=== PATIENT | male | born 1975 | race Caucasian/White ===

== ENCOUNTER 2017-02-28 10:00 | Inpatient (IN) | payer OTHER ==
--- NOTE | ~2017-02-28 | PN ---
Unit #: [id number] #: [id number] Patient: SHASTA TEE [id number] [facility] [address] [place] [address] [id number] I MR#: [id number] NAME: SHASTA TEE. ROOM: P210 Age: 41 Sex: M Admission Date: 02/28/2017 : 1975 Attending Physician: Josh Torres M.D. Admitting Physician: Josh Torres M.D. Primary Care Physician: Aby Doctor Not In System [facility] PROGRESS NOTES DATE 03/06/2017 DISCUSSION The patient is a 41-year-old white male, who was seen today, chart was reviewed, and case was discussed with the staff. He has been anxious, withdrawn, though has not shown any agitation, irritability, or behavioral problem and has been cooperative with treatment recommendations and has been taking the medications and tolerating them fairly well. MENTAL STATUS EXAMINATION Middle-aged male, who is casually dressed with fair personal hygiene, appears to be in no acute distress or discomfort. He is awake and alert attention and concentration. His mood is anxious and depressed with a congruent affect with some suicidal ideation, but denies any homicidal ideation. His insight and judgment remain significantly impaired. TREATMENT PLAN 1. We will continue on his current treatment protocol. We will monitor his response to the medications and make further adjustments as needed. 2. We will continue to follow up. Dictated by... Joseph Bryant/phyllis TD: 03/06/2017 18:45 JOB #: [id number] [facility] PROGRESS NOTES Page 1 of 1 X Josh Torres MD PROGRESS NOTE
--- NOTE | ~2017-02-28 | PN ---
Unit #: [id number] #: [id number] Patient: SHASTA POLANCO [id number] [facility] [address] [place] [address] [id number] I MR#: [id number] NAME: SHASTA POLANCO ROOM: P210 Age: 41 Sex: M Admission Date: 02/28/2017 : 1975 Attending Physician: Josh Torres M.D. Admitting Physician: Josh Torres M.D. Primary Care Physician: Aby Doctor Not In System [facility] PROGRESS NOTES DATE OF SERVICE: 03/05/2017 SUBJECTIVE Mr. Polanco is a 41-year-old white male who was seen today and chart was reviewed and case was discussed with the staff. He has been doing fairly well and has been showing improvement in his mood and anxiety as he has been cooperative with treatment recommendations and has been taking the medications and tolerating them fairly well. MENTAL STATUS EXAMINATION Middle-aged white male who was casually dressed with fair personal hygiene, appears to be in no acute distress or discomfort. He was awake and alert on interaction with intact orientation. His mood was anxious with a congruent affect. He denies any suicidal or homicidal ideations. His insight and judgment remain slightly impaired. TREATMENT PLAN We will continue him on his current treatment protocol. We will monitor his response to the medications and make further adjustments as needed. Dictated by... Joseph Bryant/phyllis TD: 03/06/2017 08:05 JOB #: [id number] [facility] PROGRESS NOTES Page 1 of 1 X Josh Torres MD PROGRESS NOTE
--- NOTE | ~2017-02-28 | PN ---
Unit #: [id number] #: [id number] Patient: SHASTA POLANCO [id number] [facility] [address] [place] [address] [id number] I MR#: [id number] NAME: SHASTA POLANCO ROOM: P210 Age: 41 Sex: M Admission Date: 02/28/2017 : 1975 Attending Physician: Josh Torres M.D. Admitting Physician: Josh Torres M.D. Primary Care Physician: Aby Doctor Not In System [facility] PROGRESS NOTES DATE OF SERVICE: 03/03/2017 SUBJECTIVE Mr. oPlanco is a 41-year-old white male, who was seen today and chart was reviewed and case was discussed with the staff. He has been anxious, withdrawn, and rather seclusive to himself. Meanwhile, he has been cooperative with his treatment recommendations and has been taking the medications and tolerating them fairly well. MENTAL STATUS EXAMINATION Middle-aged white male who was casually dressed with fair personal hygiene, appears to be in no acute distress or discomfort. He was awake and alert on interaction with intact orientation. His mood was anxious with a congruent affect. He denies any suicidal or homicidal ideations. His insight and judgment remain slightly impaired. TREATMENT PLAN 1. We will continue on his current medications and treatment protocol. We will monitor his response to the medications and make further adjustments as needed. 2. We will continue to follow up. Dictated by... Joseph Bryant/phyllis TD: 03/04/2017 02:01 JOB #: [id number] [facility] PROGRESS NOTES Page 1 of 1 X Josh Torres MD PROGRESS NOTE
--- NOTE | ~2017-02-28 | PA ---
Unit #: [id number] #: [id number] Patient: SHASTA POLANCO [id number] [facility] [address] [place] [address] [id number] I MR#: [id number] NAME: SHASTA POLANCO ROOM: P210 Age: 41 Sex: M Admission Date: 02/28/2017 : 1975 Date of Assessment: 03/01/2017 Attending Physician: Josh Torres M.D. Admitting Physician: Josh Torres M.D. Primary Care Physician: Generic Doctor Not In System PSYCHIATRIC ASSESSMENT DATE OF SERVICE 02/28/2017. IDENTIFYING DATA Mr. Polanco is a 41-year-old single male, who is a resident of [place], [place], and is known to us from previous encounter and was self-referred to the hospital on a voluntary basis. CHIEF COMPLAINT "I've been attempting to take my life over a course of several days." HISTORY OF PRESENT ILLNESS Mr. Polanco is a 41-year-old male with history of mood disorder and substance abuse, who was self-referred to the hospital reporting that he has been trying to kill himself for the last few days and that he has a plan and that he tried to overdose on heroin a few days ago and he went to an abandoned building where he felt no one would find him and reports that he uses large amounts of heroin with hopes of overdosing and dying and the patient has been unsuccessful and reports that he frequently tried to slit his wrists using a razor blade and reports that he is originally from [place] and has lost several friends and family members due to suicide, terminal illnesses, or being killed and reports that he has been going through some increasing depression and does report feelings of hopelessness and helplessness and suicidal ideation with intent and plan and as such, a recommendation for inpatient level of care was made and the patient was transferred to us. SUBSTANCE ABUSE HISTORY The patient reports history of cocaine and opioids and methamphetamine abuse and last use of cocaine and opioids within the last 3 days. PAST PSYCHIATRIC HISTORY The patient reports history of psychiatric treatment and being diagnosed with mood disorder and currently going through some increasing depression, but he is noncompliant with the medication and as such has been decompensating. PAST MEDICAL HISTORY Crohn disease, asthma, and hepatitis C. ALLERGIES No known medication allergies. Unit #: [id number] #: [id number] Patient: SHASTA POLANCO PERSONAL AND SOCIAL HISTORY A 41-year-old male, who reports that he is single, unemployed, and lives with a friend and has poor social support system. MENTAL STATUS EXAMINATION Middle-aged male, who was casually dressed with a fair personal hygiene, appears to be in no acute distress or discomfort. He was awake and alert on interaction with intact orientation to time, place, and person. His mood was anxious with a congruent affect. His speech was slow and restricted in content. His thought processes were disorganized with some looseness of associations and suicidal ideations. His insight and judgment remain significantly impaired. DIAGNOSTIC IMPRESSION Psychiatric: Major depressive disorder, recurrent, moderate, without psychotic features; opioid dependence, moderate; cocaine dependence, moderate; and methamphetamine dependence, moderate. Medical: Hepatitis C, asthma, and Crohn disease. Stressors: Moderate psychosocial stressors. TREATMENT PLAN 1. The patient has presented with a history of substance abuse and mood disorder and has been decompensating and will need inpatient hospitalization for safety and stabilization. We will start him back on his home medications and we will adjust the medications and monitor response and make further adjustments as needed. 2. Supportive therapy was provided to the patient. 3. Safe, structured, and nourishing environment will be provided. ESTIMATED LENGTH OF STAY 5 to 7 days. ABILITY TO HELP SELF Limited. WILLINGNESS TO HELP SELF The patient appears to be willing to help self. STRENGTHS 1. Communicative. 2. Cooperative. PROBLEMS 1. Chronic dysphoric symptoms. 2. Poor social support system. DISCHARGE CRITERIA This will be contingent upon the patient's ability to show resolution of his depression and anxiety and his ability to stay safe to himself, particularly after discharge from the hospital. Dictated by... Josh Torres M.D. DEB/phyllis TD: 03/01/2017 12:50 Unit #: [id number] #: [id number] Patient: SHASTA POLANCO JOB #: [id number] PSYCHIATRIC ASSESSMENT Page 1 of 1 X Josh Torres MD PSYCHIATRIC ASSESSMENT
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
--- NOTE | ~2017-02-28 | PN ---
Unit #: [id number] #: [id number] Patient: SHASTA POLANCO [id number] [facility] [address] [place] [address] [id number] I MR#: [id number] NAME: SHASTA POLANCO ROOM: P210 Age: 41 Sex: M Admission Date: 02/28/2017 : 1975 Attending Physician: Josh Torres M.D. Admitting Physician: Josh Torres M.D. Primary Care Physician: Aby Doctor Not In System [facility] PROGRESS NOTES DATE OF SERVICE: 03/04/2017 IDENTIFICATION DATA Mr. Polanco is a 41-year-old male, who was seen today and chart was reviewed, and case was discussed with the staff. He has been anxious, withdrawn, depressed, asthma, complaining of decreased sleep at night. Meanwhile, he has been taking the medications and tolerating them fairly well. MENTAL STATUS EXAMINATION Middle-aged white male, who was casually dressed with fair personal hygiene, appears to be in no acute distress or discomfort. He was awake and alert on intact orientation. His mood was anxious with a congruent affect. He denies any suicidal or homicidal ideations. His insight and judgment remain slightly impaired. TREATMENT PLAN 1. We will continue on his current treatment protocol and we will monitor his response and make further adjustments as needed. 2. We will continue on followup. Dictated by... Joseph Bryant/phyllis TD: 03/05/2017 17:06 JOB #: [id number] [facility] PROGRESS NOTES Page 1 of 1 X Josh Torres MD PROGRESS NOTE
--- NOTE | ~2017-02-28 | DS ---
Unit #: [id number] #: [id number] [facility] [id number] [facility] [address] [place] [address] [id number] MR#: [id number] NAME: SHASTA POLANCO. ROOM: [facility] Age: 41 Sex: M Admission Date: 02/28/2017 : 1975 Discharge Date: 03/07/2017 Attending Physician: Josh Torres M.D. Primary Care Physician: Generic Doctor Not In System DISCHARGE SUMMARY IDENTIFYING DATA Mr. Polanco is a 41-year-old white male with history of substance abuse and mood disorder, who was self-referred to the hospital. DISCHARGE DIAGNOSES Psychiatric: Opioid dependence, moderate, in acute withdrawals and opioid-induced mood disorder. Medical: Hepatitis C, Crohn disease, history of deep venous thrombosis, and asthma. Stressors: Moderate psychosocial stressors. HISTORY OF PRESENT ILLNESS Please see initial psychiatric evaluation for details. PAST PSYCHIATRIC HISTORY Please see initial psychiatric evaluation for details. PAST MEDICAL HISTORY Please see initial psychiatric evaluation for details. HOSPITAL COURSE The patient was admitted to the adult chemical dependency unit at [facility] t[facility] and was oriented to the hospital environment. Routine p.r.n. medications were initiated, and he was started on the detox protocol and was closely monitored. He was taking the medications regularly and was tolerating them fairly well and was able to show a decent and therapeutic response and was able to come out of the detox without any complications and was willing to continue treatment on an outpatient basis and as such, it was decided that he will be kept on his current medications and will be discharged home and will continue treatment on an outpatient basis. DISCHARGE CONDITION Stable. PROGNOSIS Guarded. Dictated by... Joseph Bryant/vishall Unit #: [id number] #: [id number] Patient: SHASTA POLANCO TD: 04/08/2017 19:23 JOB #: [id number] DISCHARGE SUMMARY Page 1 of 1 X Josh Torres MD X DISCHARGE SUMMARY
--- NOTE | ~2017-02-28 | PN ---
Unit #: [id number] #: [id number] Patient: SHASTA POLANCO [id number] [facility] [address] [place] [address] [id number] I MR#: [id number] NAME: SHASTA POLANCO. ROOM: P210 Age: 41 Sex: M Admission Date: 02/28/2017 : 1975 Attending Physician: Josh Torres M.D. Admitting Physician: Josh Torres M.D. Primary Care Physician: Generic Doctor Not In System [facility] PROGRESS NOTES DATE 03/02/2017 DISCUSSION Mr. Polanco is a 41-year-old, white male who was seen today and chart was reviewed and case was discussed with the staff. He has been anxious, withdrawn and rather seclusive to himself. The patient was been calm and cooperative with treatment recommendations. He has been taking the medication and tolerating them fairly well. MENTAL STATUS EXAM Middle-aged white male who was casually dressed with fair personal hygiene, appears to be in no acute distress or discomfort. He was awake and alert with impaired attention and concentration. His mood is anxious with congruent affect. He denies any suicidal or homicidal ideation. His insight and judgement remains significantly impaired. TREATMENT PLAN 1. We will continue him on his current medications and treatment protocol. We will monitor his response to the medication and make further adjustments as needed. 2. We will continue to follow up. Dictated by... Joseph Bryant/flor TD: 03/05/2017 01:49 JOB #: [id number] Unit #: [id number] #: [id number] Patient: SHASTA POLANCO [facility] PROGRESS NOTES Page 1 of 1 X Josh Torres MD X PROGRESS NOTE
--- NOTE | ~2017-02-28 | PN ---
Unit #: [id number] #: [id number] Patient: SHASTA POLANCO [id number] [facility] [address] [place] [address] [id number] I MR#: [id number] NAME: SHASTA POLANCO. ROOM: P210 Age: 41 Sex: M Admission Date: 02/28/2017 : 1975 Attending Physician: Josh Torres M.D. Admitting Physician: Josh Torres M.D. Primary Care Physician: Aby Doctor Not In System [facility] PROGRESS NOTES DATE March 01, 2017 DISCUSSION Mr. Polanco is a 41-year-old male, with substance and mood disorder, who was seen today and chart was reviewed and the case was discussed with the staff. He was lying in his bed and was seen to be anxious, disheveled, and in distress and disorganized, he did not show any agitation or aggression, and was cooperative with the treatment recommendations and he has been taking the medications and tolerating them fairly well with no reported side effects. MENTAL STATUS EXAMINATION Young white male, who was casually dressed with fair personal hygiene and appears to be in no acute distress or discomfort. He was awake and alert on interaction with intact orientation. His mood is anxious and depressed with a congruent affect. He reports having suicidal ideations but denies any homicidal ideations. His insight and judgment remain significantly impaired. TREATMENT PLAN 1. We will continue him on his current treatment protocol, and will monitor his response to the medications, and make further adjustments as needed. 2. We will continue to followup. Dictated by... Joseph Bryant/ovi TD: 03/03/2017 10:22 JOB #: [id number] Unit #: [id number] #: [id number] Patient: SHASTA POLANCO [facility] PROGRESS NOTES Page 1 of 1 X Josh Torres MD PROGRESS NOTE
[2017-03-01 11:34] LABS: URINE APPEARANCE TURBID; URINE BILIRUBIN NEG (NEG); URINE BLOOD NEG (NEG); URINE COLOR YELLOW; URINE GLUCOSE 250 MG/DL (NEG); URINE KETONE NEG (NEG); URINE LEUKOCYTE ESTERASE 1+ (NEG); URINE NITRATE NEG (NEG); URINE PROTEIN 1+ (NEG); URINE SPECIFIC GRAVITY 1.027 (1.003-1.035); URINE UROBILINOGEN 0.2 MG/DL (NEG)
[2017-03-01 11:39] LABS: URINE BACTERIA AUWI 1+ (NEGATIVE); URINE SQUAMOUS EPITHELIAL CELL NONE SEEN /[HPF]; UWBCS1 AUWI 25-50 (0-5)
[2017-03-01 12:05] LABS: ALBUMIN SERUM 4.1 g/dL (3.5-5.0); BILIRUBIN,TOTAL 0.8 mg/dL (0.2-2.0); BUN/CREATININE RATIO 23.07; CALCIUM SERUM 8.9 mg/dL (8.4-10.2); CREATININE SERUM 1.3 mg/dL (0.6-1.4); GLOM FILT RATE Estimated 67.8 mL/min (>60); POTASSIUM 4.3 mmol/L (3.5-5.1); PROTEIN TOTAL SERUM 7.5 g/dL (6.0-8.3)
[2017-03-01 12:41] LABS: AMPHETAMINE NEG (NEG); BARBITURATES NEG (NEG); BENZODIAZEPINES NEG (NEG); COCAINE POS (NEG); MARIJUANA NEG (NEG); OPIATES POS (NEG); TRICYCLIC ANTIDEPRESSANTS NEG (NEG); U METHADONE NEG (NEG)
[2017-03-01 13:12] LABS: URINE AMORPHOUS SEDIMENT AMORP URATES
[2017-03-01 13:14] LABS: URBCS1 AUWI 0-2 /[HPF] (0-2)
[2017-03-03 12:26] LABS: BASOPHIL% 0.4 % (0-2.5); EOSINOPHIL# 0.2 X10e3 (0-0.7); EOSINOPHIL% 4.2 % (0.0-7.0); HEMATOCRIT 40.7 % (38.0-50.0); HEMOGLOBIN 13.6 gm/dL (13.0-16.0); LYMPHOCYTE# 1.6 X10e3 (1.0-3.5); LYMPHOCYTE% 34.3 % (17.0-45.0); MEAN CELL VOLUME 95.3 FL (83-96); MEAN CORPUSCULAR HEMOGLOBIN 31.9 PG (28-34); MEAN CORPUSCULAR HGB CONC 33.5 g/dL (30-36); MEAN PLATELET VOLUME 8.1 FL (6.5-11.5); MONOCYTE# 0.5 X10e3 (0-1.0); MONOCYTE% 9.7 % (3.0-12.0); NEUTROPHIL# 2.4 X10e3 (1.5-7.1); NEUTROPHIL% 51.4 % (40-75); PLATELET COUNT 225 X10e3 (140-420); RED BLOOD COUNT 4.27 X10e (3.90-5.60); RED CELL DISTRIBUTION WIDTH 13.7 % (11.0-15.5); WHITE BLOOD COUNT 4.7 X10e3 (4.0-10.5)
[2017-03-03 12:32] LABS: DIFF IND NO
== END 2017-03-07 11:05 | disposition home or self-care (01) | DRG 885 ==
LOC: P2S 12:13
PROVIDERS: Psychiatry & Neurology Psychiatry
DX: F33.1 Major depressive disorder, recurrent, moderate (principal); F11.20 Opioid dependence, uncomplicated; F14.20 Cocaine dependence, uncomplicated; F15.20 Other stimulant dependence, uncomplicated; K50.90 Crohn's disease, unspecified, without complications; R45.851 Suicidal ideations; J45.909 Unspecified asthma, uncomplicated; B19.20 Unspecified viral hepatitis C without hepatic coma; Z91.14 Patient's other noncompliance with medication regimen
CPT/HCPCS: 80053; 80307; 81003; 85025